=== PATIENT | female | born 1945 | race Caucasian/White ===

== ENCOUNTER → 2017-05-06 | Outpatient (CLI) | payer MEDICARE ==
[2017-05-06 13:49] LABS: Blood Urea Nitrogen 15 mg/dL (7-17); Non-African American GFR(MDRD) >60 (>60 ml/min/1.73 sqM)
--- NOTE | 2017-05-06 15:39 | CT ---
EXAMINATION TYPE: CT urogram wo/w con DATE OF EXAM: 05/06/2017 HISTORY: Patient complains of RUQ pain and gross hematuria. CT DLP: 1966mGycm Automated Exposure Control for Dose Reduction was Utilized. CONTRAST: CT scan of the abdomen and pelvis is performed without and with IV Contrast, patient injected with 10 0 mL of Omnipaque 300. COMPARISON: None. FINDINGS: There are mild emphysematous changes within the lungs. There is some scarring or atelectasi s at the left lung base. There is no pleural or pericardial fluid. There is mild cardiomegaly. Within the abdomen, the gallbladder is been removed. The liver and spleen appear normal. Both adrenal glands appear normal. The pancreas is unremarkable. Both kidneys demonstrate function. There are extrarenal pelves bilaterally. There is parapelvic cysts on the left. The bladder is unremarkable. There is a moderate stool load present. The appendix is not visualized with certainty. Small bowel loops are normal. No free fluid and no free air is seen. No osseous destructive lesion is seen. There is mild degenerative disc disease at L5-S1 and there is facet arthropathy in the lower lumbar spine. There is endplate sclerosis at L5-S1. IMPRESSION: 1. NO ACUTE ABNORMALITY TO EXPLAIN THE PATIENT'S HEMATURIA. 2. EXTRARENAL PELVES BILATERALLY. 3. PARAPELVIC CYSTS ON THE LEFT. 4. EMPHYSEMATOUS CHANGES WITHIN THE LUNGS. 5. CONSTIPATION. 6. DEGENERATIVE CHANGES WITHIN THE SPINE.
== END | disposition home or self-care (01) ==
LOC: RADCTMAIN 13:06
PROVIDERS: ATTEND Urology
DX: N28.1 Cyst of kidney, acquired (principal)
CPT/HCPCS: 82565; 84520; 74178; 36415; 74400; Q9967

== ENCOUNTER → 2019-02-12 | Outpatient (CLI) | payer MEDICARE ==
[2019-02-12 10:53] LABS: Basophils % (A) 0 %; Eosinophils # (A) 0.1 k/uL (0-0.7); Eosinophils % (A) 1 %; HCT 40.6 % (34.0-46.0); HGB 13.6 gm/dL (11.4-16.0); Lymphocytes # (A) 1.2 k/uL (1.0-4.8); Lymphocytes % (A) 17 %; MCH 29.2 pg (25.0-35.0); MCHC 33.6 g/dL (31.0-37.0); MCV 86.9 fL (80.0-100.0); Mean Platelet Volume 8.7; Monocytes # (A) 0.5 k/uL (0-1.0); Monocytes % (A) 7 %; Neutrophils % (A) 73 %; Platelet Count 312 k/uL (150-450); RBC 4.67 m/uL (3.80-5.40); RDW 15.2 % (11.5-15.5); WBC 6.8 k/uL (3.8-10.6)
[2019-02-12 11:08] LABS: Potassium 4.7 mmol/L (3.5-5.1)
== END | disposition home or self-care (01) ==
LOC: LABPAT 09:34
PROVIDERS: ATTEND Obstetrics & Gynecology
DX: Z01.818 Encounter for other preprocedural examination (principal); Z01.812 Encounter for preprocedural laboratory examination; N81.10 Cystocele, unspecified; N39.3 Stress incontinence (female) (male)
CPT/HCPCS: 36415; 80051; 82565; 84520; 85025; 87086; 93005

== ENCOUNTER 2019-02-22 05:54 | Day surgery (SDC) | payer MEDICARE ==
[~2019-02-22 05:54] MED LIST: DEXAMETHASONE SOD PHOSPHATE 10 MG/ML 1 ML VIAL IV ONE; LACTATED RINGERS 1,000 ML IV SCH; LIDOCAINE 1% 20 ML VIAL (10MG/ML) FOR IV START INTRADERMA PRN; MIDAZOLAM (PF) 2 MG/2 ML VIAL IV PRN; ONDANSETRON 4 MG/2 ML VIAL IVP ONE; VANCOMYCIN 1,000 MG in SODIUM CHLORIDE 0.9% 250 ML IVPB ONE
[2019-02-22] MEDS: LACTATED RINGERS 1,000 ML IV SCH ×3 (06:35→13:10)
[2019-02-22] MEDS ORDERED: fentaNYL (PF) 50 MCG/ML 2 ML AMP IV ONE (06:48)
[2019-02-22] MEDS ORDERED: MIDAZOLAM (PF) 2 MG/2 ML VIAL IV ONE (06:48)
[2019-02-22] MEDS ORDERED: MIDAZOLAM 2 MG/2 ML VIAL ONE (06:55)
[2019-02-22] MEDS ORDERED: SUCCINYLCHOLINE CHLORIDE 100 MG/5 ML SYR IV ONE (06:55)
[2019-02-22] MEDS ORDERED: fentaNYL (PF) 50 MCG/ML 2 ML AMP ONE (06:55)
[2019-02-22] MEDS ORDERED: MORPHINE SULFATE (PF) 0.3 MG/0.3 ML SYR ONE (06:55)
[2019-02-22] MEDS ORDERED: PROPOFOL 10 MG/ML 20 ML VIAL IV ONE (06:55)
[2019-02-22] MEDS ORDERED: KETOROLAC 30 MG/ML 1 ML VIAL ONE (06:55)
[2019-02-22] MEDS ORDERED: ONDANSETRON 4 MG/2 ML VIAL IVP ONE (06:59)
[2019-02-22] MEDS ORDERED: DEXAMETHASONE SOD PHOSPHATE 10 MG/ML 1 ML VIAL IV ONE (07:00)
[2019-02-22] MEDS ORDERED: diphenhydrAMINE 50 MG/ML 1 ML VIAL IVP STA (07:15)
[2019-02-22] MEDS ORDERED: diphenhydrAMINE 50 MG/ML 1 ML VIAL IVP ONE (07:17)
[2019-02-22] MEDS ORDERED: NALOXONE 0.4 MG/ML 1 ML VIAL IV PRN (07:46)
[2019-02-22] MEDS ORDERED: HYDROmorphone 0.5 MG/0.5 ML SYRINGE IVP PRN (07:46)
[2019-02-22] MEDS ORDERED: KETOROLAC 30 MG/ML 1 ML VIAL IVP PRN ×2 (07:46→08:34)
[2019-02-22] MEDS ORDERED: ONDANSETRON 4 MG/2 ML VIAL IVP PRN (07:46)
[2019-02-22] MEDS ORDERED: diphenhydrAMINE 50 MG/ML 1 ML VIAL IVP PRN ×2 (07:46→08:34)
[2019-02-22] MEDS ORDERED: BACITRACIN 500 UNIT/GM OINT 28.4 GM TUBE TOPICAL ONE (07:55)
[2019-02-22] MEDS ORDERED: VASOPRESSIN 20 UNIT/ML 1 ML VIAL IM ONE (07:55)
[2019-02-22] MEDS ORDERED: ZOLPIDEM 5 MG TAB PO PRN (08:34)
[2019-02-22] MEDS ORDERED: METOCLOPRAMIDE 5 MG/ML 2 ML VIAL IVP PRN (08:34)
[2019-02-22] MEDS ORDERED: SIMETHICONE 80 MG CHEWABLE PO PRN (08:34)
[2019-02-22] MEDS ORDERED: IBUPROFEN 600 MG TAB PO PRN (08:34)
--- NOTE | 2019-02-22 08:34 | P.OP ---
Date of Procedure: 02/22/19 Preoperative Diagnosis: Increasingly symptomatic grade 4 cystocele, genuine stress urinary incontinence Postoperative Diagnosis: Same Procedure(s) Performed: Cystocele repair Anesthesia: NILAMA Surgeon: Holly Duran Scan Coordinator #1: Rj Rendon Estimated Blood Loss (ml): 10 IV fluids (ml): 800 Urine output (ml): 150 Pathology: none sent Condition: stable Disposition: PACU Description of Procedure: Patient is brought to Bring suite where a general anesthetic is administered after a spinal with Duramorph has been placed. Patient is placed in the dorsal lithotomy position, antibiotics given. The appropriate timeout is performed to assure proper patient and procedural identification. The vagina, perineal body, and lower abdomen are all prepped and draped in the usual sterile fashion. The bladder was drained for approximately 150 mL of clear yellow urine. A weighted speculum was placed into the vagina and the uterosacral cardinal ligament complex dimples are identified and grasped with Allis clamps. The anterior vaginal mucosa is injected with a dilute Pitressin solution. A [place] blade scalpel is used to incise the tissue between the 2 Allis clamps. Metzenbaum scissors are used now in the midline to undermine the mucosa to the apex of the defect. This is approximately 1.5 cm inferior to the urethra. The edges of skin are held with Allis clamps and a sponge rolled finger is used to sweep the underlying fascia from the overlying mucosal plane. Jones catheter is placed. Urine is clear. 2-0 Vicryl sutures used to bring the fascial edges together in the midline in an interrupted fashion, thereby completely reducing the cystocele. Excellent reapproximation of the fascial plane is noted. Metzenbaum scissors are used to trim the redundant mucosa. The anterior vaginal wall is closed in a running locking stitch with 2-0 Vicryl suture. The vagina is clean and dry. It is packed with one-inch iodophor gauze. Jones catheter is noted to be draining clear urine. All sponge needle and instrument counts are correct. Patient is brought back to recovery room in very good condition with 100% O2 saturation, 67 pulse, blood pressure 90/64.
[2019-02-22 16:51] VITALS: BMI 30.2
[2019-02-22] MEDS ORDERED: GABAPENTIN 300 MG CAP PO SCH (21:15)
[2019-02-22] MEDS ORDERED: MELATONIN 5 MG TABLET PO SCH (21:30)
--- NOTE | 2019-02-23 05:48 | P.PN ---
Progress Note - Text Progress Note Date: 02/23/19 73 yo female status post Cystocele repair. Post-op day #1. Patient received int rathecal Duramorph. Patient was seen today, sitting up in bed no complaints, pain VAS score 2/10, no headache, no itching, no nausea and vomiting. Assessment and plan: Doing well in general no complications from anesthesia.
[2019-02-23] MEDS ORDERED: LEVOTHYROXINE 100 MCG TAB PO SCH (06:30)
[2019-02-23 07:11] VITALS: BP 118/73; PULSE 72; RESP 16; TEMP 98
[2019-02-23] MEDS ORDERED: PANTOPRAZOLE 40 MG TABLET PO SCH (07:30)
[2019-02-23] MEDS ORDERED: diphenhydrAMINE 25 MG CAP PO PRN (07:46)
--- NOTE | 2019-02-23 08:07 | P.DS ---
Providers Date of admission: 02/22/19 Expected date of discharge: 02/23/19 Attending physician: Holly Duran Primary care physician: [facility] Course: This is a 73-year-old white female status post hysterectomy many years ago who p resented with an increasingly symptomatic grade 4 cystocele. After thorough discussion patient elected to proceed with surgical repair. Please see dictated history and physical examination for details. Patient was admitted yesterday and underwent cystocele repair under my care. She did well intraoperatively. Vaginal packing was placed and a Jones catheter was also placed to direct drainage. Please see dictated operative note for details. Spinal with Duramorph had been placed with good results. Patient did well through the night. She did have some itching which improved with the administration of Benadryl. This morning the vaginal packing and the Jones catheter had been removed. She is awaiting spontaneous void, which will be measured. Postvoid residual will also be measured. If residual is less than 100 mL patient may be discharged home. Her chest is clear, extremities are negative, vaginal vault is clean and dry.. Pad has been placed. There is no vaginal bleeding. Pain is well tolerated at this point. I have reviewed with the patient discharge instructions, including no intercourse, tampons or douching. No heavy lifting greater than a gallon of milk. No car driving for 2 weeks. No vacuuming. She will call the office with any vaginal bleeding, with any pain not alleviated by [id number] products, or indeed with any concerns regarding voiding, bowel movements, or any systemic issues. She will resume her home medications as previously ordered. Follow-up with me in the office in 2 weeks. Patient Condition at Discharge: Good Plan - Discharge Summary Discharge Rx Participant: No New Discharge Prescriptions: No Action Ubidecarenone [Co Q-10] 100 mg PO DAILY Cetirizine HCl [Zyrtec] 10 mg PO DAILY PRN PRN Reason: allergies Calcium Carbonate/Vitamin D3 [Caltrate 600 Plus D3 Tablet] 1 each PO BID Fluticasone Nasal [place] [Flonase Nasal [place]] 1 spray EA NOSTRIL DAILY PRN PRN Reason: allergies Ergocalciferol [Vitamin D2] 50,000 unit PO Q7D Estradiol [Vagifem] 10 mcg VG NG Baclofen [Lioresal] 5 mg PO TID PRN PRN Reason: back pain Meloxicam [Mobic] 15 mg PO DAILY Gabapentin [Neurontin] 300 mg PO HS Ezetimibe/Simvastatin [Vytorin 10-20 mg Tablet] 1 tab PO DAILY Pantoprazole [Protonix] 40 mg PO DAILY Levothyroxine Sodium [Levoxyl] 100 mcg PO DAILY Melatonin 5 mg PO HS L.acidoph,Paracasei, B.lactis [Probiotic] 1 each PO DAILY Discharge Medication List Baclofen [Lioresal] 5 mg PO TID PRN 02/11/19 [History] Calcium Carbonate/Vitamin D3 [Caltrate 600 Plus D3 Tablet] 1 each PO BID 02/11/19 [History] Cetirizine HCl [Zyrtec] 10 mg PO DAILY PRN 02/11/19 [History] Ergocalciferol [Vitamin D2] 50,000 unit PO Q7D 02/11/19 [History] Estradiol [Vagifem] 10 mcg VG NG 02/11/19 [History] Ezetimibe/Simvastatin [Vytorin 10-20 mg Tablet] 1 tab PO DAILY 02/11/19 [History] Fluticasone Nasal [place] [Flonase Nasal [place]] 1 spray EA NOSTRIL DAILY PRN 02/11/19 [History] Gabapentin [Neurontin] 300 mg PO HS 02/11/19 [History] L.acidoph,Paracasei, B.lactis [Probiotic] 1 each PO DAILY 02/11/19 [History] Levothyroxine Sodium [Levoxyl] 100 mcg PO DAILY 02/11/19 [History] Melatonin 5 mg PO HS 02/11/19 [History] Meloxicam [Mobic] 15 mg PO DAILY 02/11/19 [History] Pantoprazole [Protonix] 40 mg PO DAILY 02/11/19 [History] Ubidecarenone [Co Q-10] 100 mg PO DAILY 02/11/19 [History] Follow up Appointment(s)/Referral(s): Holly Duran MD [STAFF PHYSICIAN] - 2 Weeks Discharge Disposition: HOME SELF-CARE
== END 2019-02-23 13:00 | disposition home or self-care (01) ==
LOC: OR 05:54 → 6PED 08:14 → OR 02-23 13:00
PROVIDERS: ATTEND Obstetrics & Gynecology
DX: N81.10 Cystocele, unspecified (principal); N39.3 Stress incontinence (female) (male); E78.5 Hyperlipidemia, unspecified; K21.9 Gastro-esophageal reflux disease without esophagitis; E03.9 Hypothyroidism, unspecified; Z90.710 Acquired absence of both cervix and uterus; Z90.49 Acquired absence of other specified parts of digestive tract; Z80.8 Family history of malignant neoplasm of other organs or systems; Z79.890 Hormone replacement therapy; Z79.1 Long term (current) use of non-steroidal anti-inflammatories (NSAID); Z79.899 Other long term (current) drug therapy; Z88.1 Allergy status to other antibiotic agents; Z88.0 Allergy status to penicillin; Z88.2 Allergy status to sulfonamides
CPT/HCPCS: 86900; 86901; 86850; 36415; 57240; J3370; J1200 ×2; J1100; J2405; J3010; J2250